=== PATIENT | female | born 1980 | race Two or more races ===

== ENCOUNTER 2024-09-28 07:28 | Emergency (ER) | payer MEDICAID, OTHER ==
[~2024-09-28] VITALS: Ht 165.1 cm; Wt 73.3 kg
[2024-09-28 08:08] VITALS: BP 153/87; PULSE 61; RESP 16; TEMP 97.8; O2SAT 99
[2024-09-28 08:08] LABS: Urine Bacteria MOD /hpf (None Seen); Urine Blood 2+ /uL (Negative); Urine Clarity Clear (Clear); Urine Color Light-Yellow (Yellow); Urine Protein, UAD Negative (Negative); Urine Specific Gravity 1.012 (1.001-1.035); Urine Squamous Epithelial Cell None Seen /hpf (<5); Urine Urobilinogen Normal (Negative); Urine WBC 45 /hpf (0 - 5)
--- NOTE | 2024-09-28 08:21 | ED.PDOC ---
History of Present Illness HPI Comments 43 y/o F presents with c/o lower back pain, generalized rash and burning itchiness sensation, and dysuria for the past 5x days, today. Patient comments no further relevant or pertinent Hx, with exception of being a tray delivery aide for a [employer] and having no Hx of known allergies in the past. She denies having any hematuria, abdominal pain, fever, chills, or other associated symptoms or modifiers at this time. 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 Pertinent VENEER TAPING MACHINE OFFBEARER History Family History Family History: Unknown Social History Smoker: Non-Smoker Alcohol: Denies ETOH Use Drugs: Denies Drug Use Lives In: Home Musculoskeletal: reports: back pain Integumetry: reports: rash (generalized rash and itchness sensation ) All Other Systems: Reviewed and Negative (negative unless otherwise stated above or in HPI) Physical Exam General Appearance: Moderate Distress HEENT: Normal ENT Inspection, Pharynx Normal, TMs Normal Neck: Full Range of Motion, Non-Tender, Normal, Normal Inspection Respiratory: Chest Non-Tender, Lungs Clear, No Accessory Muscle Use, No Respiratory Distress, Normal Breath Sounds Cardiovascular: No Edema, No JVD, No Murmur, No Gallop, Normal Peripheral Pulses, Regular Rate/Rhythm Breast Exam: Deferred Gastrointestinal: No Organomegaly, Non Tender, No Pulsatile Mass, Normal Bowel Sounds, Soft Genitalia: Deferred Pelvic: Deferred Rectal: Deferred Extremities: No calf tenderness, Normal capillary refill, Normal inspection, Normal range of motion, Non-tender, No pedal edema Musculoskeletal : Apperance: Normal Neurologic: Alert, manufacturing leader II-XII nml as Tested, No Motor Deficits, Normal Affect, Normal Mood, No Sensory Deficits Cerebellar Function: Normal Reflexes: Normal Skin: Dry, Normal Color, Warm Peripheral Pulses: 3+ Radial (R), 3+ Radial (L) Lymphatic: No Adenopathy Was a procedure done? Was a procedure done?: No Differential Dx Considerations may include: allergic reaction to unknown allergen, UTI X-Ray, Labs, Meds, VS Vital Signs Date Time Temp Pulse Resp B/P (MAP) Pulse Ox O2 Delivery O2 Flow Rate FiO2 09/28/24 08:08 61 16 99 Room Air 09/28/24 08:08 97.8 61 16 153/87 (109) 99 97.8 09/28/24 07:42 97.8 61 16 153/87 (109) 99 Lab Test 09/28/24 07:48 Range/Units Urine Color Light-yellow Yellow Urine Clarity Clear Clear Urine pH 6.0 5.0-9.[address] 1.012 1.001-1.035 Urine Protein Negative Negative Urine Ketones Negative Negative Urine Blood 2+ H Negative /uL Urine Nitrite Negative Negative Urine Bilirubin Negative Negative Urine Urobilinogen Normal Negative mg/dL Urine Leukocyte Esterase 3+ Negative /uL Urine RBC 14 0 - 4 /hpf Urine WBC 45 0 - 5 /hpf Urine Squamous Epithelial Cells None seen <5 /hpf Urine Bacteria Mod H None Seen /hpf Urine Glucose Normal Normal mg/dL Patient alert. Complaining of redness of her skin itching. Urinalysis shows so UTI. Vitals stable. Answering all questions. She does have infection in her urine pain Explained to the patient to take Benadryl. Was given prescription of Macrobid antibiotic. Heart rate within normal limits. Respiratory rate within normal limits. Saturation within normal limits. No leg swelling. Explained to the patient. Was told to follow up with her primary care physician. Was told to come back if there is any problem. Time of 1ST Reevaluation: 08:32 Reevaluation 1ST: Improved Patient Education/Counseling: Diagnosis, Treatment Family Education/Counseling: No Family Present Departure 1 Departure Time of Disposition: 08:49 Impression: Primary Impression: Urinary tract infection Qualified Codes: N30.01 - Acute cystitis with hematuria Disposition: HOME / SELF CARE / HOMELESS Condition: Good e-Prescriptions Diphenhydramine Hcl (Benadryl Allergy) 25 Mg Cap 1 CAP PO QPM for 5 Days, #5 CAP 1 Refill Prov: MARLEN PERKINS MD 09/28/24 Nitrofurantoin Monohydrate Mac (Macrobid) 100 Mg Cap 100 MG PO BID for 7 Days, #14 CAP Prov: MARLEN PERKINS MD 09/28/24 Discharged With: Self Critical Care Note Critical Care Time?: No Stability Stability form required: No Heart Score Heart Score: Heart Score Response (Comments) Value History N/A 0 EKG N/A 0 Age N/A 0 Risk Factors N/A 0 Troponin N/A 0 Total 0 I personally scribed for MARLEN PERKINS MD ([email or web address]) on 09/28/24 at 08:21. Electronically submitted by Leandro Lofton ([email or web address]). MARLEN PERKINS MD Sep 28, 2024 08:21
[2024-09-28] MEDS ORDERED: NITR-87 PO (08:49)
[2024-09-28] MEDS ORDERED: DIPH25CA66 PO (08:50)
== END 2024-09-28 09:03 | disposition home or self-care (01) ==
LOC: ER 07:28
DX: N39.0 Urinary tract infection, site not specified (principal)
CPT/HCPCS: 81001